=== PATIENT | male | born 1970 | race Caucasian/White ===

== ENCOUNTER 2018-10-02 14:32 | Outpatient (REF) | payer MEDICARE, SELFPAY ==
[2018-10-02 19:27] LABS: Anion Gap 12.5 mmol/L (3-11); BUN 12 mg/dL (7-18); CO2 25.5 mmol/L (21.0-32.0); CREATININE 0.82 mg/dL (0.70-1.30); Calcium 8.9 mg/dL (8.5-10.1); Chloride 101 mmol/L (98-107); Glucose 79 mg/dL (70-100); Potassium 3.7 mmol/L (3.5-5.1); Sodium 139 mmol/L (136-145)
== END 2018-10-02 14:52 ==
LOC: NCHCN 14:32
PROVIDERS: Visit Provider Physician Assistant Medical
DX: I10 Essential (primary) hypertension (principal)
CPT/HCPCS: 80048

== ENCOUNTER 2019-10-02 16:10 | Outpatient (REF) | payer MEDICARE, SELFPAY ==
[2019-10-02 19:15] LABS: Abs Immature Grans 0.01 k/cumm (0.0-0.09); Absolute Basophil Count 0.04 k/cumm (0.0-0.2); Absolute Eosinophil Count 0.08 k/cumm (0.0-0.7); Absolute Lymphocyte Count 2.07 k/cumm (1.2-3.4); Absolute Monocyte Count 0.74 k/cumm (0.11-0.7); Absolute Neutrophil Count 4.05 k/cumm (1.2-6.7); Basophils % 0.6; Eosinophils % 1.1; HCT 43.6 % (40.0-50.0); HGB 14.8 g/dL (13.5-17.5); Immature Grans % 0.1; Lymphocytes % 29.6; Mean Corp. HGB Concentration 33.9 g/dL (32.0-36.0); Mean Corpuscular Hemoglobin 32.3 pg (27.0-33.0); Mean Corpuscular Volume 95.2 fL (80-95); Mean Platelet Volume 10.8 fL (8.0-11.0); Monocytes % 10.6; Platelet Count 286 x1000/uL (130-400); RBC 4.58 m/cumm (4.50-6.00); RBC Distribution Width 12.9 % (11.8-14.1); White Blood Cell Count 6.99 k/cumm (4.4-10.8)
[2019-10-02 19:32] LABS: ALT 53 U/L (16-63); AST 38 U/L (15-37); Albumin 4.3 g/dL (3.4-5.0); Alkaline Phosphatase 98 U/L (46-116); Anion Gap 10.4 mmol/L (3-11); BUN 11 mg/dL (7-18); Bilirubin, Total 0.9 mg/dL (0.2-1.0); CO2 30.6 mmol/L (21.0-32.0); CREATININE 0.82 mg/dL (0.70-1.30); Chloride 101 mmol/L (98-107); Glucose 97 mg/dL (74-106); LDL CHOLESTEROL 32 mg/dL (<100); Potassium 3.6 mmol/L (3.5-5.1); Sodium 142 mmol/L (136-145); Total Protein 7.4 g/dL (6.4-8.2)
== END 2019-10-02 16:30 ==
LOC: NCHCN 16:10
PROVIDERS: Visit Provider Physician Assistant
DX: I10 Essential (primary) hypertension (principal); E78.5 Hyperlipidemia, unspecified
CPT/HCPCS: 80053; 83721; 85025

== ENCOUNTER 2020-10-07 08:11 | Outpatient (REF) | payer MEDICARE, SELFPAY ==
[2020-10-07 20:42] LABS: Abs Immature Grans 0.01 10^3/uL (0.0-0.06); Absolute Basophil Count 0.06 10^3/uL (0.0-0.2); Absolute Eosinophil Count 0.26 10^3/uL (0.0-0.7); Absolute Lymphocyte Count 1.81 10^3/uL (1.2-3.4); Absolute Monocyte Count 0.54 10^3/uL (0.1-0.8); Basophils % 1.1; Eosinophils % 4.8; HCT 44.1 % (40.0-50.0); HGB 14.4 g/dL (13.5-17.5); Immature Grans % 0.2; Lymphocytes % 33.6; MCH 32.4 pg (27.0-33.0); MCHC 32.7 % (32.0-36.0); MCV 99.1 fL (80-95); MPV 11.7 fL (8.0-11.0); Neutrophils % 50.3; Nucleated RBC 0 %; Platelet Count 225 10^3/uL (130-400); RBC 4.45 10^6/uL (4.36-5.78); RDW 11.5 % (11.8-14.1); RDW-SD 42.1 fL; WBC 5.38 10^3/uL (4.4-10.8)
[2020-10-07 21:13] LABS: ALT 30 U/L (16-63); AST 19 U/L (15-37); Albumin 3.9 g/dL (3.4-5.0); Alkaline Phosphatase 90 U/L (46-116); Anion Gap 7.1 mmol/L (3-11); BUN 12 mg/dL (7-18); Bilirubin, Total 0.6 mg/dL (0.2-1.0); CO2 27.9 mmol/L (21.0-32.0); Calcium 8.9 mg/dL (8.5-10.1); Chloride 107 mmol/L (98-107); Glucose 114 mg/dL (74-106); Sodium 142 mmol/L (136-145); Total Protein 6.5 g/dL (6.4-8.2)
[2020-10-09 17:39] LABS: Calculated LDL 64 mg/dL (<100); Cholesterol 128 mg/dL (<200); HDL Cholesterol 54 mg/dL (40-60); Triglyceride 53 mg/dL (<150)
[2020-10-09 17:45] LABS: Hemoglobin A1C 5.2 % (<5.7)
== END 2020-10-07 08:31 ==
LOC: NCHCN 08:11
PROVIDERS: PCP Physician Assistant; Visit Provider Physician Assistant
DX: R73.03 Prediabetes (principal); I10 Essential (primary) hypertension; E78.5 Hyperlipidemia, unspecified; F17.210 Nicotine dependence, cigarettes, uncomplicated; F41.8 Other specified anxiety disorders; E66.3 Overweight
CPT/HCPCS: 80053; 80061; 83036; 85025

== ENCOUNTER 2021-11-01 17:43 | Outpatient (REF) | payer MEDICARE, SELFPAY ==
[2021-11-01 20:20] LABS: ALT 43 U/L (16-63); AST 24 U/L (15-37); Albumin 4.4 g/dL (3.4-5.0); Alkaline Phosphatase 92 U/L (46-116); Anion Gap 11.5 mmol/L (3-11); BUN 19 mg/dL (7-18); Bilirubin, Total 0.5 mg/dL (0.2-1.0); CO2 27.5 mmol/L (21.0-32.0); CREATININE 0.9 mg/dL (0.70-1.30); Calcium 9.2 mg/dL (8.5-10.1); Chloride 104 mmol/L (98-107); Glucose 113 mg/dL (74-106); Potassium 3.2 mmol/L (3.5-5.1); Sodium 143 mmol/L (136-145); Total Protein 7.6 g/dL (6.4-8.2)
== END 2021-11-01 17:44 | disposition home or self-care (01) ==
LOC: NCHCN 17:43
PROVIDERS: PCP Physician Assistant; Visit Provider Nurse Practitioner Family
DX: I10 Essential (primary) hypertension (principal); E78.5 Hyperlipidemia, unspecified
CPT/HCPCS: 80053

== ENCOUNTER 2021-11-12 15:10 | Outpatient (REF) | payer MEDICARE, SELFPAY ==
[2021-11-10 21:19] LABS: Anion Gap 6.3 mmol/L (3-11); BUN 15 mg/dL (7-18); CO2 32.7 mmol/L (21.0-32.0); CREATININE 0.8 mg/dL (0.70-1.30); Calcium 8.9 mg/dL (8.5-10.1); Chloride 101 mmol/L (98-107); Glucose 129 mg/dL (74-106); Potassium 3.6 mmol/L (3.5-5.1); Sodium 140 mmol/L (136-145)
== END 2021-11-12 15:11 | disposition home or self-care (01) ==
LOC: NCHCN 15:10
PROVIDERS: PCP Physician Assistant; Visit Provider Nurse Practitioner Family
DX: E87.6 Hypokalemia (principal)
CPT/HCPCS: 80048

== ENCOUNTER 2021-11-12 17:04 | Outpatient (REF) | payer MEDICARE, SELFPAY ==
[2021-11-12 20:19] LABS: Hemoglobin A1C 5.4 % (<5.7)
== END 2021-11-12 17:05 | disposition home or self-care (01) ==
LOC: NCHCN 17:04
PROVIDERS: PCP Physician Assistant; Visit Provider Nurse Practitioner Family
DX: R73.9 Hyperglycemia, unspecified (principal)
CPT/HCPCS: 83036

== ENCOUNTER 2022-12-01 16:22 | Outpatient (REF) | payer MEDICARE, SELFPAY ==
[2022-12-01 19:01] LABS: ALT 28 U/L (16-63); AST 26 U/L (15-37); Albumin 4.2 g/dL (3.4-5.0); Alkaline Phosphatase 89 U/L (46-116); Anion Gap 9.6 mmol/L (3-11); BUN 11 mg/dL (7-18); Bilirubin, Total 0.7 mg/dL (0.2-1.0); CO2 25.4 mmol/L (21.0-32.0); CREATININE 0.8 mg/dL (0.70-1.30); Chloride 104 mmol/L (98-107); Estimated GFR 106.48 (mL/min/1.73m2); Glucose 103 mg/dL (74-106); Potassium 3.8 mmol/L (3.5-5.1); Sodium 139 mmol/L (136-145); Total Protein 7.3 g/dL (6.4-8.2)
== END 2022-12-01 16:23 | disposition home or self-care (01) ==
LOC: NCHCN 16:22
PROVIDERS: PCP Physician Assistant; Visit Provider Physician Assistant
DX: I10 Essential (primary) hypertension (principal)
CPT/HCPCS: 80053

== ENCOUNTER 2023-11-28 16:26 | Outpatient (REF) | payer MEDICARE, SELFPAY ==
[2023-11-28 19:43] LABS: Abs Immature Grans 0.03 10^3/uL (0.0-0.06); Absolute Basophil Count 0.06 10^3/uL (0.0-0.2); Absolute Eosinophil Count 0.04 10^3/uL (0.0-0.7); Absolute Lymphocyte Count 1.24 10^3/uL (1.2-3.4); Absolute Monocyte Count 0.61 10^3/uL (0.1-0.8); Absolute Neutrophil Count 6.95 10^3/uL (1.2-6.7); Basophils % 0.7; Eosinophils % 0.4; HCT 45.7 % (40.0-50.0); HGB 15.6 g/dL (13.5-17.5); Immature Grans % 0.3; Lymphocytes % 13.9; MCHC 34.1 % (32.0-36.0); MCV 97 fL (80-95); MPV 10.6 fL (8.0-11.0); Monocytes % 6.8; Neutrophils % 77.9; Platelet Count 278 10^3/uL (130-400); RBC 4.73 10^6/uL (4.36-5.78); RDW-SD 43.4 fL; WBC 8.93 10^3/uL (4.4-10.8)
[2023-11-28 20:20] LABS: ALT 37 U/L (16-63); AST 35 U/L (15-37); Albumin 3.9 g/dL (3.4-5.0); Alkaline Phosphatase 74 U/L (46-116); BUN 14 mg/dL (7-18); Bilirubin, Total 1.2 mg/dL (0.2-1.0); CREATININE 0.9 mg/dL (0.70-1.30); Calcium 8.9 mg/dL (8.5-10.1); Chloride 104 mmol/L (98-107); Estimated GFR 102.12 (mL/min/1.73m2); Folate 14.9 ng/mL (8.6-20.0); Glucose 103 mg/dL (74-106); LDL CHOLESTEROL 68 mg/dL (<100); Potassium 3.4 mmol/L (3.5-5.1); Sodium 142 mmol/L (136-145); Total Protein 7.5 g/dL (6.4-8.2); Vitamin B12 280 pg/mL (193-986)
== END 2023-11-28 16:27 | disposition home or self-care (01) ==
LOC: NCHCN 16:26
PROVIDERS: PCP Physician Assistant; Visit Provider Physician Assistant
DX: I10 Essential (primary) hypertension (principal); F10.20 Alcohol dependence, uncomplicated
CPT/HCPCS: 80053; 83721; 82607; 82746; 85025

== ENCOUNTER 2024-06-05 18:56 | Outpatient (REF) | payer MEDICARE, SELFPAY ==
--- OUTSIDE RECORDS SUMMARY | 2024-06-05 19:03 | XMS_ITS | Referral Summary ---
Author Organization [facility] Address [address] [place] [address] Care Team Providers Care Row Boss Hoeing Name Role Phone Unknown, Provider Primary Care Provider Social History Tobacco Use Types Packs/Day Years Used Date Smoking Tobacco: Never Assessed Sex and Gender Information Value Date Recorded Sex Assigned at Not on file Gender Identity Not on file Sexual Orientation Not on file Plan of Treatment Not on file Care Teams Row Boss Hoeing Relationship Specialty Start Date End Date Unknown, Provider, PCP - General 09/05/15
--- OUTSIDE RECORDS SUMMARY | 2024-06-05 19:03 | XMS_ITS | Clinical Summary ---
Author Organization [facility] [place] [address] Care Team Providers Care Cosmetology Instructor Name Role Phone Unknown Primary Care Provider Unavailabl e Allergies No known active allergies Medications Medication Sig Dispensed Refills Start Date End Date Status CIS Free Text Med - Serzone 01/07/2010 Active Social History Tobacco Use Types Packs/Day Years Used Date Smoking Tobacco: Never Assessed Sex and Gender Information Value Date Recorded Sex Assigned at Not on file Gender Identity Not on file Sexual Orientation Not on file Plan of Treatment Health Maintenance Due Date Last Done Comments CT Colonography 1970 Colonoscopy 1970 Colorectal Cancer Screening 1970 FIT DNA 1970 FIT 1970 Sigmoidoscopy (10 year) with FIT yearly 1970 Sigmoidoscopy 1970 HIV screen 01/09/1988 Hepatitis C Screening 01/09/1988 Lipid Screening 01/09/1988 Hepatitis B vaccine (0-59 yrs) (1) 1989 Tdap adult 1989 Tetanus vaccine 1989 Zoster vaccine (1 of 2) 01/09/2020 Covid-19 Vaccine (1 - 2022- season) 2023 Influenza (Flu) vaccine (1 o f 1 - Influenza standard series) 06/30/2024 Care Teams Cosmetology Instructor Relationship Specialty Start Date End Date Unknown None PCP - General 12/20/23
--- OUTSIDE RECORDS SUMMARY | 2024-06-05 19:03 | XMS_ITS | Encounter Summary ---
[place] [address] Care Team Providers Care Behaviour Support Teacher Name Role Phone Allegra Fuentes MD Primary Care Provider [phone] Encounter Details Date Type Department Care Team (Late st Contact Info) Description 05/18/2021 Telephone [place] [id number] Wilda Lewis, RN Social History Tobacco Use Types Packs/Day Years Used Date Smoking Tobacco: Never Assessed Sex and Gender Information Value Date Recorded Sex Assigned at Not on file Gender Identity Not on file Sexual Orientation Not on file documented as of this encounter Miscellaneous Notes * Telephone Encounter - Wilda Lewis RN - 05/18/2021 2:26 PM EDT Received call from patient who had completed online dress cap maker survey. In reviewing it with patient it was noted he is on 2 blood pressure medications,. I reviewed our criteria with patient and he is not a candidate. Patient understands and agrees. I have thanked him for coming forward and he Will let recipient know. Patient has my contact numbers and will call with any questions or concerns. documented in this encounter Plan of Treatment Not on file documented as of this encounter Visit Diagnoses Not on filedocumented in this encounter Care Teams Behaviour Support Teacher Relationship Specialty Start Date End Date Allegra Fuentes MD [address] [place] [address] PCP - General 09/21/10 12/19/23 documented as of this encounter
--- OUTSIDE RECORDS SUMMARY | 2024-06-05 19:03 | XMS_ITS ---
Author Organization [facility] [place] [address] Care Team Providers Care Entomology Teacher Name Role Phone Unknown Primary Care Provider Unavailabl e Transplant Episode Kidney Potential Donor [facility] ([place], [place]) - [facility] Referred on 05/13/2021 Marked as Ineligible on 05/18/2021 Reason: Medically Not Suitable/Does not meet Criteria Kidney CoordinatorWilda Lewis RN Phone: N/A Fax: N/A Email: N/A Care Team Name Role Phone Fax Email Wilda Lewis RN Kidney Coordinator N/A N/A N /A Events Pre-Donation Referred: 05/13/2021
--- OUTSIDE RECORDS SUMMARY | 2024-06-05 19:03 | XMS_ITS | Clinical Summary ---
Author Organization [facility] Address [address] [place] [address] Care Team Providers Care Lining Maker Name Role Phone Unknown, Provider Primary Care Provider [phone] Social History Tobacco Use Types Packs/Day Years Used Date Smoking Tobacco: Never Assessed Sex and Gender Information Value Date Recorded Sex Assigned at Not on file Gender Identity Not on file Sexual Orientation Not on file Plan of Treatment Health Maintenance Due Date Last Done Comments Hepatitis C Screen 1970 Hepatitis B Vaccine (1 of 3 - 19+ 3-dose series) 01/08 COVID-19 Vaccine ( season) 2023 Care Teams Lining Maker Relationship Specialty Start Date End Date Unknown, Provider, PCP - General 09/05/15
--- OUTSIDE RECORDS SUMMARY | 2024-06-05 19:03 | XMS_ITS | Encounter Summary ---
Author Organization [facility] [place] [address] Care Team Providers Care Agile Scrum Coach Name Role Phone Allegra Fuentes MD Primary Care Provider [phone] Encounter Details Date Type Department Care Team (Late st Contact Info) Description 05/13/2021 Telephone [place] [phone] Tammy Ferrara Social History Tobacco Use Types Packs/Day Years Used Date Smoking Tobacco: Never Assessed Sex and Gender Information Value Date Recorded Sex Assigned at Not on file Gender Identity Not on file Sexual Orientation Not on file documented as of this encounter Miscellaneous Notes * Telephone Encounter - Tammy Ferrara - 05/13/2021 2:42 PM EDT First Name Shaquille Christian Last Name Tiffanie Address [address] [place] [address] (Include city/town, state and ZIP Code) Best time to call Afternoon Email Address [email or web address] Date of 1970 Age [id number] Gender Male Height in inches 68 Weight in pounds 200 Body Mass Index (BMI) 30 Who would you like to donate to? Charlie Moreno What is your relation to your donor? Childhood friend What is your Blood type? O Who is your Primary Care Physician (PCP)? Sherita SILVEIRA, [facility] When was your last physical exam? 04-10-2021 Date of your last colonoscopy NA Date of your last prostate exam/PSA level Na Do any of the following apply to you? Current No BMI greater than 35 No Active infection No High blood pressure under theage of 50 No High blood pressure over the age of 50 on more than 1 medication Yes Kidney stones within the past 10 years No Human Immunodeficiency Virus (HIV) No Under the age of 21 No Diabetes No Current cancer diagnosis No Mental health diagnosis No Please list your medical problems Traumatic Brain Injury, arthritis, Have you ever had surgery? Subdural, Epidural Hematoma, stephanie to help heal fractured fib/tib and removal of stephanie a year later. Please list your medications Metoprolol Tartrate 25 mg, hydrochlorothiazide 25mg, amlodipine besylate 10 mg, atorvastatin 80 mg Please list any allergies you have None documented in this encounter Plan of Treatment Not on file documented as of this encounter Visit Diagnoses Not on filedocumented in this encounter Care Teams Agile Scrum Coach Relationship Specialty Start Date End Date Allegra Fuentes MD [address] [place] [id number] PCP - General 09/21/10 12/19/23 documented as of this encounter
--- OUTSIDE RECORDS SUMMARY | 2024-06-05 19:03 | XMS_ITS | Encounter Summary ---
Author Organization [facility] Address [address] [place] [address] Care Team Providers Care Assistant Merchandiser Name Role Phone Unknown, Provider Primary Care Provider [phone] Encounter Details Date Type Department Care Team (Late st Contact Info) Description 06/01/2022 Lab Requisition [facility] Pathology & Laboratory Medicine - [facility] [address] [place] [address] Nabil Aguayo MD [address] [place] [phone] Encounter for other general examination Social History Tobacco Use Types Packs/Day Years Used Date Smoking Tobacco: Never Assessed Sex and Gender Information Value Date Recorded Sex Assigned at Not on file Gender Identity Not on file Sexual Orientation Not on file documented as of this encounter Plan of Treatment Not on file documented as of this encounter Procedures Procedure Name Priority Date/Time Associated Diagnosis Comments SURGICAL PATHOLOGY Today 06/01/2022 8:43 EDT documented in this encounter Results * SURGICAL PATHOLOGY (06/01/2022 8:43 EDT) Note to Patient The following pathology results have been interpreted by your pathologist and may be available to you before your health provider has had the opportunity to review them. Please allow time for your provider to receive these results and explore management options, if applicable. 06/03/2022 15:15 EDT [facility] Final Diagnosis A. RECTUM, POLYP, BIOPSY: - Fragments of tubular adenoma(s). B. COLON, ASCENDING, POLYP, BIOPSY: - Fragments of tubular adenoma(s). 06/03/2022 15:15 [facility] Attestation By the signature below, the attending physician certifies that they have 1) personally conducted a gross and/or microscopic examination of the described specimen(s), and/or personally interpreted the results of laboratory testing of the described specimen(s), and 2) personally rendered or confirmed the above diagnosis. 06/03/2022 15:15 [facility] at 1515 Clinical History Screening colonoscopy, colon polyps 06/03/2022 15:15 T [facility] Gross Description A. Received in formalin labelled with proper patient identification (initials (F, T) and rectal polyp is a single brown slightly granular polypoid tissue (0.7 x 0.6 x 0.4 cm) with attached ivey mucosa (1.0 x 0.7 x 0.1 cm). The specimen is trisected and entirely submitted in A1. B. Received in formalin labelled with proper patient identification (initials F, T) and ascending colon polyp are two brown-yellow slightly granular polypoid tissues (0.7 x 0.5 x 0.3 cm and 0.5 x 0.4 x 0.3 cm). The larger polypoid tissue is bisected and entirely submitted in B1 and the smaller polypoid tissue is bisected and entirely submitted in B2. BOBBY CHANEL 06/02/2022 9:59 06/03/2022 15:15 T [facility] Performing Lab [facility] 06/03/2022 15:15 T [facility] Scanned Images 06/03/2022 15:15 T [facility] Tissue ASCENDING COLON STRUCTURE / Unknown 06/01/2022 8:43 EDT 06/02/2022 8:08 EDT Tissue specimen (specimen) ASCENDING COLON STRUCTURE / Unknown 06/01/2022 8:43 EDT 06/02/2022 8:08 EDT Nabil Aguayo MD PATHOLOGY ORDERABLES [facility] [address] [place] [address] documented in this encounter Visit Diagnoses Diagnosis Encounter for other general examination documented in this encounter Care Teams Assistant Merchandiser Relationship Specialty Start Date End Date Unknown, Provider, PCP - General 09/05/15 documented as of this encounter
[2024-06-06 22:24] LABS: Hepatitis C Ab w Rflx HCV PCR Negative (Negative)
[2024-06-06 22:27] LABS: HIV-1/2 Ag & Ab Screen Negative (Negative)
== END 2024-06-05 18:57 | disposition home or self-care (01) ==
LOC: NCHCN 18:56
PROVIDERS: PCP Physician Assistant; Visit Provider Physician Assistant
DX: Z11.4 Encounter for screening for human immunodeficiency virus [HIV] (principal); Z11.59 Encounter for screening for other viral diseases
CPT/HCPCS: 86803; 87389

== ENCOUNTER 2025-03-05 14:22 | Outpatient (REF) | payer MEDICARE, SELFPAY ==
[2025-03-05 19:49] LABS: ALT 32 U/L (16-63); AST 26 U/L (15-37); Alkaline Phosphatase 83 U/L (46-116); Anion Gap 6.6 mmol/L (3-11); BUN 18 mg/dL (7-18); Bilirubin, Total 0.8 mg/dL (0.2-1.0); CO2 28.4 mmol/L (21.0-32.0); CREATININE 0.8 mg/dL (0.70-1.30); Calcium 9.5 mg/dL (8.5-10.1); Chloride 103 mmol/L (98-107); Estimated GFR 104.51 (mL/min/1.73m2); Glucose 107 mg/dL (74-106); Potassium 3.9 mmol/L (3.5-5.1); Sodium 138 mmol/L (136-145); Total Protein 7.2 g/dL (6.4-8.2)
== END 2025-03-05 14:23 | disposition home or self-care (01) ==
LOC: NCHCN 14:22
PROVIDERS: PCP Physician Assistant; Visit Provider Physician Assistant
DX: I10 Essential (primary) hypertension (principal)
CPT/HCPCS: 80053